=== PATIENT | female | born 1975 | race Caucasian/White ===

== ENCOUNTER 2017-12-28 14:14 | Outpatient (CLI) | payer MEDICAID ==
[2017-12-28 15:44] LABS: ADD UMIC YES; UR ASCORBIC ACID NEGATIVE (NEGATIVE); UR BILIRUBIN (Dip) NEGATIVE (NEGATIVE); UR BLOOD (Dip) 3+ mg/dL (NEGATIVE); UR CLARITY SLIGHTLY CLOUDY (CLEAR); UR COLOR YELLOW (YELLOW); UR GLUCOSE (Dip) NEGATIVE (NEGATIVE); UR KETONES (Dip) 1+ mg/dL (NEGATIVE); UR LEUKOCYTE ESTERASE (Dip) NEGATIVE Leu/ul (NEGATIVE); UR NITRITE (Dip) NEGATIVE (NEGATIVE); UR RBC 5 /HPF (0-5); UR SPECIFIC GRAVITY (Dip) 1.014 (1.003-1.030); UR SQUAMOUS EPITHELIAL CELL FEW /HPF (FEW); UR TOTAL PROTEIN (Dip) NEGATIVE (NEGATIVE); UR UROBILINOGEN (Dip) NEGATIVE (NEGATIVE); UR WBC 2 /HPF (0-5)
[2017-12-28] MEDS: LACTATED RINGER'S 1,000 ML IV (16:49)
[2017-12-28] MEDS: CEFAZOLIN 2 GM/50 ML (PMX) 50 ML IVPB (16:49)
== END 2017-12-28 18:15 | disposition home or self-care (01) ==
LOC: OBT 14:14 → L-D 14:18 → OBT 18:15
DX: O26.852 Spotting complicating pregnancy, second trimester (principal); O09.522 Supervision of elderly multigravida, second trimester; Z3A.26 26 weeks gestation of pregnancy
CPT/HCPCS: 36415; 76815; 76817; 81001; 96360

== ENCOUNTER 2018-03-27 09:04 | Inpatient (IN) | payer MEDICAID ==
[2018-03-27] MEDS ORDERED: METHYLERGONOVINE 0.2 MG INJ IM ×2 (11:00→16:00)
[2018-03-27] MEDS ORDERED: MISOPROSTOL 200 MCG TAB PR ×2 (11:00→16:00)
[2018-03-27] MEDS ORDERED: BUTORPHANOL 2 MG INJ IV (11:00)
[2018-03-27] MEDS ORDERED: OXYTOCIN 30 UNITS/LR 500 ML IV ×3 (11:00→16:00)
[2018-03-27] MEDS ORDERED: IBUPROFEN 600 MG TAB PO (11:00)
[2018-03-27] MEDS ORDERED: LIDOCAINE 1% (MPF) 30 ML INJ INJ (11:00)
[2018-03-27] MEDS ORDERED: CARBOPROST 250 MCG INJ IM ×2 (11:00→16:00)
[2018-03-27 11:14] LABS: ADD MAN DIFF? NO
[2018-03-27 11:18] LABS: WHITE BLOOD COUNT 9.7 10^3/ul (4.8-10.8)
[2018-03-27 11:18] LABS: BASOPHILS % 0.2 % (0.0-2.0); EOSINOPHILS # 0.1 10^3/ul (0.0-0.5); EOSINOPHILS % 0.5 % (0.0-7.0); HEMATOCRIT 31.2 % (37.0-47.0); LYMPHOCYTES % 20.7 % (15.0-51.0); MEAN CORPUSCULAR HEMOGLOBIN 27.5 pg (29.0-33.0); MEAN CORPUSCULAR HGB CONC 32.1 g/dl (32.0-37.0); MEAN CORPUSCULAR VOLUME 85.7 fl (82.0-101.0); MEAN PLATELET VOLUME 11.3 fl (7.4-10.4); MONOCYTE # 0.7 10^3/ul (0.3-0.9); MONOCYTES % 7.2 % (0.0-11.0); NEUTROPHIL # 6.9 10^3/ul (1.6-7.5); PLATELET COUNT 190 10^3/UL (140-415); RED BLOOD COUNT 3.64 10^6/ul (4.20-5.40); RED CELL DISTRIBUTION WIDTH 15.9 % (11.5-14.5)
[2018-03-27] MEDS: LACTATED RINGER'S 1,000 ML IV* ×4 (11:40→23:37)
[2018-03-27] MEDS: AMPICILLIN 2 GM/NS (PMX) 100 ML IV (11:41)
[2018-03-27 11:48] LABS: PROTIME 12.2 Sec (11.9-14.9)
[2018-03-27] MEDS ORDERED: FENTAnyl 2MCG/ML-ROPIV 0.2% 100 ML (12:05)
[2018-03-27 12:09] LABS: HEPATITIS B SURFACE ANTIGEN NEGATIVE (NEGATIVE)
[2018-03-27] MEDS: OXYTOCIN 30 UNITS/LR 500 ML IV ×3 (12:38→15:37)
[2018-03-27] MEDS ORDERED: NALOXONE (0.4 MG/ML) INJ IV (13:30)
[2018-03-27] MEDS ORDERED: ONDANSETRON 4 MG INJ IV (13:30)
[2018-03-27] MEDS ORDERED: FENTAnyl 2MCG/ML-ROPIV 0.2% 100 ML BAG EPI (13:30)
[2018-03-27] MEDS ORDERED: DIPHENHYDRAMINE 50 MG INJ IV (13:30)
[2018-03-27] MEDS ORDERED: AMPICILLIN 1 GM/NS (PMX) 50 ML IV (15:00)
[2018-03-27] MEDS ORDERED: DIPHENHYDRAMINE 25 MG CAP PO (16:00)
[2018-03-27] MEDS ORDERED: HYDROCODONE/APAP (5/325) TAB PO (16:00)
[2018-03-27] MEDS ORDERED: ZOLPIDEM 5 MG TAB PO (16:00)
[2018-03-27] MEDS ORDERED: MAGNESIUM HYDROXIDE 30ML CUP PO (16:00)
[2018-03-27] MEDS ORDERED: ACETAMINOPHEN 325 MG TAB PO (16:00)
[2018-03-27] MEDS: IBUPROFEN 800 MG TAB PO ×2 (17:44→23:59)
[2018-03-27] MEDS: WITCH HAZEL/GLYCERIN PAD PR (17:44)
[2018-03-27] MEDS: BENZOCAINE 20% 56 ML SPRAY TOP (17:45)
[2018-03-27] MEDS: LANOLIN 7 GM TUBE TOP (17:45)
[2018-03-27 19:16] LABS: RAPID PLASMA REAGIN NONREACTIVE (NR)
[2018-03-27] MEDS: SENNA/DOCUSATE NA (8.6MG/50MG) TAB PO (21:00)
[2018-03-28] MEDS: IBUPROFEN 800 MG TAB PO ×3 (06:00→18:00)
[2018-03-28 09:07] LABS: ADD MAN DIFF? NO
[2018-03-28 09:12] LABS: BASOPHILS % 0.3 % (0.0-2.0); EOSINOPHILS # 0.1 10^3/ul (0.0-0.5); EOSINOPHILS % 0.9 % (0.0-7.0); HEMATOCRIT 34.6 % (37.0-47.0); HEMOGLOBIN 10.7 g/dl (12.0-16.0); LYMPHOCYTES # 1.9 10^3/ul (0.8-2.9); LYMPHOCYTES % 18.9 % (15.0-51.0); MEAN CORPUSCULAR HEMOGLOBIN 26.7 pg (29.0-33.0); MEAN CORPUSCULAR HGB CONC 30.9 g/dl (32.0-37.0); MEAN CORPUSCULAR VOLUME 86.3 fl (82.0-101.0); MEAN PLATELET VOLUME 12.3 fl (7.4-10.4); MONOCYTE # 0.7 10^3/ul (0.3-0.9); NEUTROPHIL # 7.4 10^3/ul (1.6-7.5); NEUTROPHILS % 72.3 % (39.0-77.0); PLATELET COUNT 174 10^3/UL (140-415); RED BLOOD COUNT 4.01 10^6/ul (4.20-5.40); RED CELL DISTRIBUTION WIDTH 16.1 % (11.5-14.5)
[2018-03-28 09:12] LABS: WHITE BLOOD COUNT 10.2 10^3/ul (4.8-10.8)
[2018-03-28] MEDS: SENNA/DOCUSATE NA (8.6MG/50MG) TAB PO (12:51)
[2018-03-28] MEDS: VARICELLA VACCINE LIVE/PF 1,350 UNIT/0.5 ML ML SC* (12:53)
[2018-03-28] MEDS: DIPHTH/TET/ACEL PERTUSS (ADULT) 0.5 ML VIAL IM* (12:53)
[2018-03-28] MEDS: MEASLES,MUMPS,RUBELLA VACCINE INJ SC* (12:53)
== END 2018-03-28 19:06 | disposition home or self-care (01) | DRG 775 ==
LOC: OBT 09:04 → L-D 09:04 → OBT 10:29 → L-D 10:29 → PP1 15:11
PROVIDERS: Obstetrics & Gynecology
PROC: 10E0XZZ Delivery of Products of Conception, External Approach (ICD-10-PCS; principal; 2018-03-27)
PROC: 4A1HXCZ Monitoring of Products of Conception, Cardiac Rate, External Approach (ICD-10-PCS; 2018-03-27)
DX: O80 Encounter for full-term uncomplicated delivery (principal); Z3A.39 39 weeks gestation of pregnancy; Z37.0 Single live birth
CPT/HCPCS: 62319; 85025; 85610; 85730; 86592; 86850; 86870; 86900; 86901; 87340